=== PATIENT | male | born 1965 | race Caucasian/White ===

== ENCOUNTER 2025-06-23 12:56 | Outpatient (AMB) | payer OTHER, SELFPAY ==
--- NOTE | 2025-06-23 13:05 | MHC.OFFVIS ---
Intake Visit Reasons: 6M BETS Allergies DAIRY PRODUCTS Allergy (Unknown, Uncoded 06/23/25 13:06) STOMACH UPSET Medication List - Last Reconciled 06/23/25 by Serene Harry CNP primidone 50 mg PO BID 90 days propranolol ER 80 mg PO DAILY simvastatin 40 mg PO BEDTIME HPI Comments Details: 59-year-old RH man with right hand tremor for a few years. He was doing okay. Tremor was well controlled. He noticed the tremor more in the morning or if he was dehydrated. No functional impairment. No difficulty eating, drinking, or swallowing. Sleep was okay with CPAP. He was planning to retire at the end of the month. [facility] Medical History (Updated 06/23/25 @ 13:08 by Serene Harry CNP) Hypertension Hyperlipidemia Review of Systems Const Denies chills, Denies daytime sleepiness, Denies difficulty sleeping, Denies fatigue, Denies fever(s), Denies frequent falls, Denies headache(s), Denies increased appetite, Denies poor appetite, Reports snoring, Denies weakness, Denies weight gain and Denies weight loss Eyes Denies loss of vision ENT Denies vertigo, Denies dizziness and Denies headache(s) Card Denies chest pain at rest, Denies chest pain with activity, Denies syncope, Denies leg edema and Denies palpitations Resp Reports snoring GI Denies constipation, Denies heartburn, Denies diarrhea and Denies nausea Denies urinary frequency, Denies urinary incontinence and Denies urinary urgency Musc Denies abnormal gait, Denies numbness and Denies tingling Skin/Breast Denies dry skin and Denies rash Neuro Denies abnormal gait, Denies vertigo, Denies dizziness, Denies syncope, Denies frequent falls, Denies headache(s), Denies lack of coordination, Denies loss of vision, Denies memory loss, Denies numbness, Denies restless legs, Denies seizure-like activity, Denies tingling, Denies paresthesias, Reports tremor(s) and Denies weakness Psych Denies anxiety, Denies depression, Denies auditory hallucinations, Denies memory loss, Denies visual hallucinations and Denies suicidal ideation Endo Denies fatigue and Denies palpitations Physical Exam Const Other: General Appearance:? normal, in no acute distress. Skin:? no rashes, no significant birthmarks. Heart:? S1, S2 normal, no murmurs. Lungs:? clear anteriorly and posteriorly. Extremities:? no edema. Psych:? alert, oriented, cognitive function intact, cooperative with exam. Neuro Other: Mental Status:?Normal attention, orientation, memory and affect.? Cranial Nerves:?Pupils are equal, round and reactive to light. External occular muscles are intact. Visual patrick are full. Face is symmetrical. Facial sensations are normal. Tongue is midline. Palate elevates symmetrically. Shoulder shrugging is normal. Hearing to bedside conversation is normal. Sensory Exam:?....? Coordination:?No ataxia,?no titubation.? Gait Exam: Within normal limits. Cerebellar Signs:?[id number] is okay. Extrapyramidal System:?No tremor, rigidity with normal facial expressions.? Pronator Drift:?Not present.? Involuntary Movements:?Mild R hand postural tremor noted. Speech:?Normal.? Assessment & Plan Assessment & Plan (1) Benign essential tremor: Code(s): G25.0 - Essential tremor Category: Medical Plan: Continue primidone 50mg 1 tablet twice a day. Coding Level of Care Code Est Pt Level 3 (06576) Diagnoses Benign essential tremor G25.0
== END 2025-06-23 13:13 | disposition home or self-care (01) ==
LOC: HO.HSM 12:57
PROVIDERS: PCP Family Medicine; Visit Provider Registered Nurse
DX: G25.0 Essential tremor (principal)
CPT/HCPCS: 99213